=== PATIENT | male | born 1970 | race Caucasian/White ===

== ENCOUNTER 2018-10-28 18:03 | Emergency (ER) | payer BC ==
[2018-10-28] MEDS ORDERED: Bacitracin Oint 1 GM U/D Packet TOP ONE (18:51)
[2018-10-28] MEDS ORDERED: Diphtheria,Pertussis(Acell),Tetanus Vaccine 0.5 ML Syringe IM ONE (18:56)
--- NOTE | 2018-10-28 18:57 | EDM.PDOC ---
ED HPI GENERAL MEDICAL PROBLEM - General Chief Complaint: Laceration Stated Complaint: CUT LEFT HAND MIDDLE FINGER Time Seen by Provider: 10/28/18 18:34 Source of Information: Reports: Patient History Limitations: Reports: No Limitations - History of Present Illness INITIAL COMMENTS - FREE TEXT/NARRATIVE: The patient states he was doing some hedge trimming when he accidentally ran into his right third finger tip with the dominick. He now has an irregular laceration on the end of his finger. - Related Data Allergies Allergy/AdvReac Type Severity Reaction Status Date / Time No Known Allergies Allergy Verified 10/28/18 18:19 Home Meds: Home Meds Carvedilol mg PO DAILY 10/28/18 [History] Lisinopril mg PO BID 10/28/18 [History] Past Medical History HEENT History: Reports: Impaired Vision, Other (See Below) Other HEENT History: wears glasses Cardiovascular History: Reports: Hypertension, Other (See Below) Other Cardiovascular History: TOF - Past Surgical History Cardiovascular Surgical History: Reports: Other (See Below) Other Cardiovascular Surgeries/Procedures: 3 open heart sx for TOF Social & Family History - Family History Family Medical History: Noncontributory - Tobacco Use Smoking Status *Q: Never Smoker - Recreational Drug Use Recreational Drug Use: No ED ROS GENERAL - Review of Systems Review Of Systems: ROS reveals no pertinent complaints other than HPI. ED EXAM, SKIN/RASH Exam: See Below Exam Limited By: No Limitations General Appearance: Alert, No Apparent Distress Ears: Normal External Exam Nose: Normal Inspection Throat/Mouth: Normal Inspection Head: Atraumatic, Normocephalic Neck: Normal Inspection Respiratory/Chest: No Respiratory Distress Cardiovascular: Normal Peripheral Pulses Skin: Other (Right third fingertip irregular laceration. Full range of motion without hesitation or limitation 0.5 cm straight laceration through the distal nail) ED SKIN PROCEDURES - Laceration/Wound Repair Left Digit - 3rd (Middle) Lac/Wound length In cm: 1 Appearance: Superficial Distal NVT: No Tendon Injury Local Anesthesia - Lidocaine (Xylocaine): 1% Plain Local Anesthetic Volume: 2cc Skin Prep: Chlorhexidine (Hibiciens) Exploration/Debridement/Repair: Wound Explored, In a Bloodless Field, Explored to Base Closed with: Sutures Suture Size: 4-0 # of Sutures: 2 Suture Type: Nylon Tetanus Status Addressed: Yes (Unknown) Course - Vital Signs Last Recorded V/S: Last Vital Signs Temp 36.6 C 10/28/18 18:05 Pulse 65 10/28/18 18:05 Resp 18 10/28/18 18:05 BP 148/74 H 10/28/18 18:05 Pulse Ox 84 L 10/28/18 18:05 - Orders/Labs/Meds Orders: Active Orders 24 hr Category Date Time Status Bacitracin [Bacitracin Oint 1 GM] Med 10/28/18 18:51 Once 1 dose TOP ONETIME ONE Meds: Medications Discontinued Medications Generic Name Dose Route Start Last Admin Trade Name Shadia PRN Reason Stop Dose Admin Lidocaine HCl 5 ml 10/28/18 18:37 Xylocaine-Mpf 1% INJECT 10/28/18 18:38 ONETIME ONE Departure - Departure Time of Disposition: 18:56 Disposition: Home, Self-Care 01 Condition: Good Clinical Impression: Laceration - Discharge Information *PRESCRIPTION DRUG MONITORING PROGRAM REVIEWED*: Not Applicable *COPY OF PRESCRIPTION DRUG MONITORING REPORT IN PATIENT SOCO: Not Applicable Referrals: Jeyson Brunson MD [Primary Care Provider] - Additional Instructions: 1. Suture removal 7-10 days 2. For signs of infection: Redness, swelling, purulent drainage, report promptly - My Orders Last 24 Hours: My Active Orders 10/28/18 18:51 Bacitracin [Bacitracin Oint 1 GM] 1 dose TOP ONETIME ONE - Assessment/Plan Last 24 Hours: My Active Orders 10/28/18 18:51 Bacitracin [Bacitracin Oint 1 GM] 1 dose TOP ONETIME ONE
== END 2018-10-28 19:22 | disposition home or self-care (01) ==
LOC: MW.ED 18:03
DX: S61.213A Laceration without foreign body of left middle finger without damage to nail, initial encounter (principal); Z23 Encounter for immunization; W26.8XXA Contact with other sharp object(s), not elsewhere classified, initial encounter
CPT/HCPCS: 12001; 90471; 90715; 99282; J2001